=== PATIENT | female | born 2000 | race Two or more races ===

== ENCOUNTER 2024-05-29 00:33 | Emergency (ER) | payer SELFPAY ==
[~2024-05-29] VITALS: Ht 154.9 cm; Wt 72.7 kg
[2024-05-29 00:50] VITALS: TEMP 98
[2024-05-29 05:30] VITALS: BP 102/52; PULSE 75; RESP 16
== END 2024-05-29 06:58 | disposition home or self-care (01) ==
LOC: EMS 00:36
DX: S00.83XA Contusion of other part of head, initial encounter (principal); S10.93XA Contusion of unspecified part of neck, initial encounter; Y04.8XXA Assault by other bodily force, initial encounter; Y93.89 Activity, other specified; Y92.89 Other specified places as the place of occurrence of the external cause; Y99.8 Other external cause status
CPT/HCPCS: 99282; Z7502